=== PATIENT | male | born 1995 | race Caucasian/White ===

== ENCOUNTER 2024-06-29 16:27 | Emergency (ER) | payer BC, MEDICAID ==
[2024-06-29] MEDS: Dexamethasone 4 MG Tab PO ONE (17:07)
[2024-06-29] MEDS: Ibuprofen 800 MG Tab PO ONE (17:07)
[2024-06-29] MEDS: Acetaminophen 500 MG Tab PO ONE (17:07)
== END 2024-06-29 17:28 | disposition home or self-care (01) ==
LOC: DL.ED 16:27
DX: J39.9 Disease of upper respiratory tract, unspecified (principal); B97.89 Other viral agents as the cause of diseases classified elsewhere
CPT/HCPCS: 87081; 87428; 87430; 99283; A9270; J8540; 99282